=== PATIENT | female | born 1995 | race Hispanic/Latino ===

== ENCOUNTER 2020-01-14 09:12 | Outpatient (CLI) | payer OTHER ==
[2020-01-14 17:15] LABS: SARS-CoV-2 MS2 Positive; SARS-CoV-2 N Gene Negative; SARS-CoV-2 S Gene Negative; SARS-CoV-2 by NAA Not Detected (NotDetected); SARS-CoV-2 orf1ab Negative
== END 2020-01-14 09:13 | disposition home or self-care (01) ==
LOC: LABBT 09:12
PROVIDERS: ATTEND Student in an Organized Health Care Education/Training Program
DX: Z20.828 Contact with and (suspected) exposure to other viral communicable diseases (principal)
CPT/HCPCS: 87635; U0003

== ENCOUNTER 2020-01-18 19:30 | Inpatient (IN) | payer OTHER ==
--- NOTE | 2020-01-19 04:14 | PDOC.FPROB ---
FMR OB H&P: HPI - History of Present Illness Chief Complaint: mIOL for IUGR History of Present Illness: Pt is a at 39.2 wga by a 8.3wk sono who presents for mIOL for IUGR. Last Hadlock with MFM was 12/26 and was 8%. Patient endorses good movement, no LOF/VB/VD. Primary Care Physician: Shauna FMR OB H&P: Current - Care : 1 Para: 0010 Gestational age: 39.2wks Due date: 01/24/20 Dating Criteria: 8.3 wk sono - OB Labs Blood type: A RH: positive Antibody Screen: negative HIV: negative RPR: negative Rubella: immune Gonorrhea: negative Chlamydia: negative Pap Smear: NILM GBS: negative - Additional Ultrasound Additional: Hadlock 8% IUGR 2 echogenic intracradiac focus on mitral valve. FMR OB H&P: History - Past Medical History PMH: denies - OB History OB History: history of induced in 1T (medical with no instrumentation) Anemia of , on iron . h/h - INVENTORY CONTROL/SHIPPING RECEIVING History INVENTORY CONTROL/SHIPPING RECEIVING History: denies hx of STDs LMP 04/10/19 Menarche 14 - Surgical History Sx History: denies - Social History Social History: denies alcohol, drugs, tobacco - Family History Family History: denies FMR OB H&P: Medications - Current Home Medications: Medication Instructions Recorded Confirmed Type Ferrous Sulfate [Iron] 1 tab PO DAILY 01/19/20 01/19/20 History Pnv No.95/Ferrous Fum/Folic AC 1 tab PO DAILY 01/19/20 01/19/20 History [ [place]] Allergies/Adverse Reactions: Allergies Allergy/AdvReac Type Severity Reaction Status Date / Time No Known Allergies Allergy Verified 01/19/20 04:30 FMR OB H&P: ROS - Review of Systems General: denies: fever/chills Eyes: denies: vision changes Cardiovascular: denies: chest pain Respiratory: denies: shortness of breath Gastrointestinal: denies: abdominal pain, vomiting Genitourinary (Female): denies: dysuria, vaginal discharge, vaginal pain, vaginal bleeding, contractions, vaginal pressure Musculoskeletal: denies: swelling Neurologic: denies: syncope, headache FMR OB H&P: Vital Signs - Heart Tones Baseline: 130 Variability: moderate Acceleration: present Deceleration: absent Category: category 1 [place] contractions every: irritability FMR OB H&P: Physical Exam - Physical Exam General: NAD, awake, alert and oriented HEENT: normocephalic and atraumatic, EOMI, conjunctiva clear, grossly normal vision, grossly normal hearing Neck: supple Heart: RRR, normal S1/S2 General: CTAB, no respiratory distress Abdomen: soft, gravid, non-tender Musculoskeletal: FROM in all four extremities Neurological: cranial nerves II through XII intact, no focal deficit Skin: no rash Psychiatric: intact recent and remote memory, good judgement and insight - Pelvic Exam SVE: 0/0/-3 Membranes: intact Presentation: cephalic FMR OB H&P: A/P Disposition: Pt is a at 39.2 wga by a who presents for mIOL for IUGR. #mIOL for IUGR -most recent Hadlock 8% -patient desires epidural -baby is confirmed cephalic on bedside sono -continuous monitoring, cat 1 strip on admission -initial cervical check 0/0/-3 , henderson of 2 -cytotec induction -cervical checks q3 hours -placenta to path after delivery as per MFM recs anticipate Discussion: Date/Time: 01/19/20 4680 This H&P was discussed with Dr. Nice and Dr. Walton who agree with the above documentation and plan. Addendum - Attending - Attending Attestation Date/Time: 01/19/20 9614 I personally evaluated the patient and discussed the management with Dr. Brown and Dr. Nice I agree with the History, Examination, Assessment and Plan documented above with any addition or exceptions noted below. Admit for mIOL 2/2 IUGR. Unfavorable cervix. Cephalic. Reactive tracing. Will start induction with miso. May eat breakfast 1.5 hours after miso placement. Repeat SVE in 4 hours or as needed. Jamilah
[2020-01-19] MEDS ORDERED: Acetaminophen 500 MG TAB PO PRN (04:15)
[2020-01-19] MEDS ORDERED: Ondansetron PF 4 MG/2 ML Vial IVP PRN ×2 (04:15→13:54)
[2020-01-19] MEDS ORDERED: Butorphanol Tartrate 1 MG/ML VIAL SLOW IVP PRN (04:15)
[2020-01-19] MEDS ORDERED: Docusate 100 MG CAP PO PRN (04:15)
[2020-01-19] MEDS ORDERED: Meperidine HCl/PF 25 MG/ML VIAL IM/IV PRN (04:15)
[2020-01-19] MEDS ORDERED: hydrALAZINE 20 MG/ML VIAL SLOW IVP PRN (04:15)
[2020-01-19] MEDS ORDERED: Promethazine HCl 25 MG/ML VIAL IM PRN ×2 (04:15→13:54)
[2020-01-19 04:42] VITALS: BMI 26.9
[2020-01-19 05:15] LABS: Hemoglobin 12.6 g/dL (12.0-16.0); Mean Corpuscular HGB CONC 32.8 g/dL (32.0-36.0); Mean Corpuscular Hemoglobin 31.9 pg (27.0-31.0); Mean Corpuscular Volume 97.4 fL (78.0-98.0); Mean Platelet Volume 9.4 fL (7.4-10.4); Platelet Count 201 thou/uL (130-400); RBC Distribution Width 12.1 % (11.5-14.5); Red Blood Cell (RBC) Count 3.95 mill/uL (4.20-5.40); White Blood Cell (WBC) Count 9.5 thou/uL (4.8-10.8)
[2020-01-19] MEDS ORDERED: NS / Oxytocin 40 units/1000ml 1,000 ML IV PRN (05:21)
[2020-01-19] MEDS ORDERED: Misoprostol 200 MCG TAB PR PRN (05:21)
[2020-01-19] MEDS ORDERED: Ibuprofen 800 MG TAB PO PRN (05:21)
[2020-01-19] MEDS ORDERED: Methylergonovine 0.2 MG/ML VIAL IM PRN (05:21)
[2020-01-19] MEDS ORDERED: Carboprost 250 MCG/ML AMP IM PRN (05:21)
[2020-01-19] MEDS ORDERED: Lidocaine 1% (PF) 30 ML VIAL SC PRN (05:21)
[2020-01-19 05:54] LABS: HBSAg Index 0.18 S/CO (0-0.99)
[2020-01-19 06:12] LABS: Syphilis Antibody Nonreactive (Nonreactive); Syphilis Antibody Index 0.01 S/CO (<1.00 Non-Reactive)
[2020-01-19 06:15] LABS: Hep B Surf Ag NonReactive S/CO (NonReactive)
[2020-01-19] MEDS: Misoprostol 100 MCG TAB VAG SCH (06:40)
[2020-01-19] MEDS ORDERED: Ferrous Sulfate 325 MG TAB PO SCH (08:00)
[2020-01-19] MEDS ORDERED: Prenatal Vitamin 1 TAB PO SCH (09:00)
[2020-01-19] MEDS: Lactated Ringer's 1,000 ML IV SCH (10:00)
--- NOTE | 2020-01-19 10:35 | PDOC.OBLPN ---
FMR OB Labor PN: Subj - Interval History Hospital Day: 1 Chief Complaint: mIOL for IUGR Indentification: 24yo at 39.2wks Interval History: Feeling well, no complaints FMR OB Labor PN: Obj - Maternal Vital signs: Vital signs reviewed and normal - Procedures Procedures: Cook balloon cath placed with speculum and ring forceps. FMR OB Labor PN: Exam - Physical Exam General: NAD, awake, alert and oriented HEENT: normocephalic and atraumatic, EOMI, grossly normal vision, grossly normal hearing Neck: supple, FROM General: no respiratory distress Abdomen: soft, gravid, non-tender Musculoskeletal: FROM in all four extremities Neurological: no focal deficit Skin: no rash Lymphatic: no purpura, no petechia Psychiatric: intact recent and remote memory, good judgement and insight, normal mood and affect - Pelvic Exam Vulva: normal hair distribution, appropriate lyssa stage, no lesions, no discharge, no blood Deviation from normal: small 0.5cm polyp protruding from the cervical os SVE: 1.5 [place] score: 5 Membranes: Intact FMR OB Labor PN: Data - Labs Lab results: Laboratory Results - last 24 hr 01/19/20 01/19/20 01/19/20 04:56 04:56 04:56 WBC RBC Hgb Hct MCV MCH MCHC RDW Plt Count MPV Syphilis IgG/IgM Ab Nonreactive Hep Bs Antigen NonReactive Blood Type A POSITIVE Antibody Screen NEGATIVE 01/19/20 01/19/20 04:56 06:30 WBC 9.5 RBC 3.95 L Hgb 12.6 Hct 38.5 MCV 97.4 MCH 31.9 H MCHC 32.8 RDW 12.1 Plt Count 201 MPV 9.4 Syphilis IgG/IgM Ab Hep Bs Antigen Blood Type A POSITIVE Antibody Screen FMR OB Labor PN: A/P Disposition: Pt is a at 39.2 wga by a who presents for mIOL for IUGR. mIOL for IUGR - most recent Hadlock 8% - patient desires epidural - baby is confirmed cephalic on bedside sono - continuous monitoring, cat 1 strip with baseline 140, multiple accels, mod variability, and no decels - initial cervical check 0/0/-3, henderson of 2 at 0515 * Cytotec placed at 0640 * 1.5/70/-3, henderson of 5 at 1000 --> Cook balloon placed and Pitocin started * Recheck in 3-4hrs - placenta to path after delivery, per MFM recs Dispo: anticipate Discussion: Date/Time: 01/19/20 1034 This H&P was discussed with [] and [] who agree with the above documentation and plan. Strip reviewed since admission with good variability, and accels present. 140 baseline. 1 cytotec placed on admission and changed to 1-1.5 cervical dilation. Cook balloon placed @ ~10:[address] Goncalves with Dr. Miranda attending. With 40 mL in both balloons. increase to 80 ml both balloon if pt comfortable and strip reassuring. Plan to start pit at this time to augment contractions. Membranes still intact, and ceohalic confirmed on admission by Dr. Brown by bedside sono. PT agreeable to plan. -Dr. Goncalves
[2020-01-19] MEDS ORDERED: NS w/ Oxytocin 10 units 500 ML IV SCH (12:15)
[2020-01-19] MEDS ORDERED: DISCONTINUE ALL PREVIOUS NARCOTICS FS SCH (13:15)
[2020-01-19] MEDS ORDERED: Bupivacaine 0.5% 20 ML, fentaNYL Citrate/PF 400 MCG in Sodium Chloride 0.9% 72 ML EPIDURAL SCH (13:15)
[2020-01-19] MEDS: Fentanyl 4 mcg/Bupivacaine 0.1% Cassette 100 ML EPIDURAL SCH ×2 (13:53→20:39)
[2020-01-19] MEDS ORDERED: Lactated Ringer's 500 ML IV PRN (13:54)
[2020-01-19] MEDS ORDERED: diphenhydrAMINE 50 MG/ML VIAL IVP PRN (13:54)
[2020-01-19] MEDS ORDERED: ePHEDrine 50 MG/ML VIAL SLOW IVP PRN (13:54)
[2020-01-19] MEDS ORDERED: Acetaminophen 325 MG TAB PO PRN (13:54)
[2020-01-19] MEDS ORDERED: Naloxone HCl 0.4 mg/ml Vial IVP PRN ×2 (13:54)
[2020-01-19] MEDS ORDERED: Communication Order-Pharmacy FS SCH (14:00)
--- NOTE | 2020-01-19 17:24 | PDOC.LDPN ---
Labor & Delivery Progress Note - Subjective Subjective: comfortable, no concerns - Objective Vital signs reviewed and normal: yes General: NAD [place] contractions every: 2-3 min Plan: pitocin for augmentation -: at 39.2 wga by a who presents for mIOL for IUGR. mIOL for IUGR - most recent Hadlock 8% - baby is confirmed cephalic on bedside sono - placenta to path after delivery, per M recs - continuous monitoring, baseline 150, accels present, mod variability, few variables - initial cervical check 0/0/-3, henderson of 2 at 0515 * Cytotec placed at 0640 * 1.5/70/-3 1030 * Cook balloon @ 10:50 * Pit started 12:15, currently @ 4, ctx q2-3 min * Epidural placed * Balloon in place 14:30 Dispo: Continue pitocin and cook balloon for induction
--- NOTE | 2020-01-19 23:38 | PDOC.OBLPN ---
FMR OB Labor PN: Subj - Interval History Chief Complaint: cervical check FMR OB Labor PN: Obj - Maternal Vital signs: BP: 99/80 HR: 80 R: 18 Wt: 71kg - Procedures AROM: clear fluid (with minimal blood) IUPC placed: yes FMR OB Labor PN: Exam - Physical Exam General: NAD, awake, alert and oriented HEENT: normocephalic and atraumatic Heart: RRR, normal S1/S2 General: no respiratory distress Abdomen: soft, gravid Neurological: cranial nerves II through XII intact Skin: no rash Psychiatric: intact recent and remote memory, good judgement and insight - Pelvic Exam SVE: 1 Membranes: ruptured-AROM Presentation: cephalic FMR OB Labor PN: Data - Labs Lab results: Laboratory Results - last 24 hr 01/19/20 01/19/20 01/19/20 04:56 04:56 04:56 WBC RBC Hgb Hct MCV MCH MCHC RDW Plt Count MPV Syphilis IgG/IgM Ab Nonreactive Hep Bs Antigen NonReactive Blood Type A POSITIVE Antibody Screen NEGATIVE 01/19/20 01/19/20 04:56 06:30 WBC 9.5 RBC 3.95 L Hgb 12.6 Hct 38.5 MCV 97.4 MCH 31.9 H MCHC 32.8 RDW 12.1 Plt Count 201 MPV 9.4 Syphilis IgG/IgM Ab Hep Bs Antigen Blood Type A POSITIVE Antibody Screen FMR OB Labor PN: A/P Disposition: at 39.2 wga by a who presents for mIOL for IUGR. mIOL for IUGR - most recent Hadlock 8% - baby is confirmed cephalic on bedside sono - placenta to path after delivery, per [facility] recs - continuous monitoring - initial cervical check 0/0/-3, henderson of 2 at 0515 * Cytotec placed at 0640 * 1.5/70/-3 1030 * Cook balloon @ 10:50 * Pit started 12:15, currently @ 4, ctx q2-3 min * Epidural placed * Balloon in place 14:30 * at 2315. IUPC placed after AROM * Cat 1-2 with baseline at 150bpm + accels, minimal to moderate variability Dispo: anticipate Discussion: Date/Time: 01/19/20 6599 This H&P was discussed with Dr. Nice and Dr. Walton who agree with the above documentation and plan. Addendum - Attending - Attending Attestation Date/Time: 01/19/20 8436 I personally evaluated the patient and discussed the management with Dr. Brown and Dr. Nice I agree with the History, Examination, Assessment and Plan documented above with any addition or exceptions noted below. I was present for AROM. Clear. Some bloody show from cervical polyp. IUPC placed. Adjust pit per protocol and mVUs. Repeat exam in 2 hours. Jamilah
[2020-01-20] MEDS ORDERED: diphenhydrAMINE 25 MG CAP PO PRN ×2 (03:00→03:34)
[2020-01-20] MEDS ORDERED: Acetaminophen 500 MG TAB PO PRN (03:34)
[2020-01-20] MEDS ORDERED: Preparation H Ointment 28 GM TUBE PR PRN (03:34)
[2020-01-20] MEDS ORDERED: Bisacodyl 10 MG SUPP PR PRN (03:34)
[2020-01-20] MEDS ORDERED: NS / Oxytocin 40 units/1000ml 1,000 ML IV SCH (03:34)
[2020-01-20] MEDS ORDERED: hydrALAZINE 20 MG/ML VIAL SLOW IVP PRN (03:34)
[2020-01-20] MEDS ORDERED: Lanolin Ointment 7 GM TUBE TOP PRN (03:34)
[2020-01-20] MEDS ORDERED: Milk Of Magnesia 30 ML UDCUP PO PRN (03:34)
[2020-01-20] MEDS ORDERED: Benzocaine-Menthol 82.5 ML CAN TOP PRN (03:34)
[2020-01-20] MEDS: Ampicillin 2 GM in Sodium Chloride 0.9% 100 ML IVPB SCH ×2 (03:54→10:41)
--- NOTE | 2020-01-20 08:44 | DN ---
DATE OF PROCEDURE: 01/20/2020 DELIVERING PHYSICIAN: Shaylee Brown MD, PGY-1, Araceli Goncalves DO, PGY-2. ATTENDING: Izabela Walton MD PROCEDURE: Spontaneous vaginal delivery. ANESTHESIA: Epidural. QUANTITATIVE BLOOD LOSS: 792 mL. PREOPERATIVE DIAGNOSES: 1. Term intrauterine , in labor. 2. History of intrauterine growth restriction with Hadlock 8%, anemia of , on iron, echogenic intracardiac focus on mitral valve during ultrasound. POSTOPERATIVE DIAGNOSES: 1. Term intrauterine , delivered. 2. History of intrauterine growth restriction with Hadlock 8%, anemia of , on iron, echogenic intracardiac focus on mitral valve during ultrasound. INDICATIONS: A 24-year-old, G2, P 0-0-1-0 at 39 and 3 weeks, who presents for medical induction of labor for IUGR. DELIVERY NOTE: This is a 24-year-old, G2, P0-0-1-0 at 39 and 3 weeks, who delivered a viable female infant at 0200. During antepartum course, the patient was induced using Cytotec first, followed by a Cook's balloon and Pitocin. Later in patient's labor, the medical team worked to try to resolve the patient's category 2 strip with minimal variability with multiple position changes, oxygen bolus, and scalp stimulation with success. A vigorous female was delivered over the perineum in the occipitoanterior position. Anterior shoulder and the remainder of the body was delivered. A nuchal cord was noted at delivery of the head and the cord and knot were reduced once body had delivered. Baby was put onto mom's chest. Cord was clamped after delayed cord clamping and cut and cord blood collected. Placenta was delivered in a [place] presentation with a three-vessel cord noted. Fundal massage was performed and the fundus was firm. However, brisk vaginal bleeding was appreciated on exam. Bimanual exam resulted in extraction of multiple clots. Oxytocin was running and Methergine and Cytotec were administered and bleeding stopped and the fundus was still firm. The cervix and vagina were inspected and a second-degree perineal laceration was appreciated and repaired with 2-0 Vicryl in the usual fashion with good approximation and hemostasis. went to nursery in good condition for routine care. Apgars were 8 and 9 at 1 and 5 minutes respectively. The patient tolerated delivery well and went to after routine recovery care. Dr. Walton was present and teaching throughout the procedure. Job ID: [id number] MTDD
[2020-01-20] MEDS ORDERED: Adacel (T-DAP) 0.5 ML SYRINGE IM ONE (09:00)
[2020-01-20] MEDS ORDERED: Sodium Chloride 0.9% 10 ML ONE (10:40)
[2020-01-20] MEDS: Docusate Calcium (SURFAK) 240 MG CAP PO SCH ×2 (10:43→21:24)
[2020-01-20] MEDS: Prenatal Vitamin 1 TAB PO SCH (10:43)
[2020-01-20] MEDS: Ferrous Sulfate 325 MG TAB PO SCH ×2 (10:49→10:55)
[2020-01-20] MEDS: Ibuprofen 800 MG TAB PO SCH ×3 (10:49→21:25)
[2020-01-20] MEDS: Lactated Ringer's 1,000 ML IV SCH (20:12)
[2020-01-20] MEDS: Misoprostol 100 MCG TAB VAG SCH ×2 (20:13→20:14)
[2020-01-21] MEDS: Ibuprofen 800 MG TAB PO SCH ×2 (05:24→13:50)
[2020-01-21 06:50] LABS: #Basophils 0.1 thou/uL (0.0-0.2); #Eosinphils 0.3 thou/uL (0.0-0.7); #Lymphocytes 2.4 thou/uL (1.20-3.40); #Monocytes 0.7 thou/uL (0.11-0.59); #Neutrophils 8.5 thou/uL (1.40-6.50); %Basophils 0.6 % (0.0-1.0); %Eosinophils 2.2 % (0.0-10.0); %Lymphocytes 20.2 % (21.0-51.0); %Monocytes 5.7 % (0.0-10.0); %Neutrophils 71.3 % (42.0-75.0); Hemoglobin 9.9 g/dL (12.0-16.0); Mean Corpuscular Hemoglobin 32.9 pg (27.0-31.0); Mean Corpuscular Volume 96.6 fL (78.0-98.0); Mean Platelet Volume 8.8 fL (7.4-10.4); Platelet Count 173 thou/uL (130-400); RBC Distribution Width 11.9 % (11.5-14.5); Red Blood Cell (RBC) Count 3.01 mill/uL (4.20-5.40); White Blood Cell (WBC) Count 11.9 thou/uL (4.8-10.8)
--- NOTE | 2020-01-21 08:16 | PDOC.PP ---
Post Progress Note Post Day #: 1 Subjective: Pt doing very well, pain controlled, very minimal vaginal bleeding, spotting. able to ambulate well and void well. yvonne esthela with infant and would like to go home today if possible PO intake tolerated: yes Flatus: yes Ambulation: yes Vital Signs (12 hours) Temp Pulse Resp BP 01/21/20 00:00 98.6 F 85 16 101/57 L 01/20/20 21:00 99.2 F Weight Weight 71.214 kg - Physical Examination General: NAD Cardiovascular: no m/r/g, RRR Respiratory: clear to auscultation bilaterally, non-labored breathing Abdominal: + bowel sounds, lochia, no distention, appropriately TTP Fundus firm & at: just below umbilicus Extremities: negative homans (B) Skin: no rash Neurological: no gross focal deficits Psychiatric: A&Ox3, normal affect Result Diagrams: 01/21/20 06:32 Additional Labs: Post Labs Hep Bs Antigen NonReactive S/CO (NonReactive) 01/19/20 04:56 Blood Type A POSITIVE 01/19/20 06:30 (1) (spontaneous vaginal delivery) Code(s): O80 - ENCOUNTER FOR FULL-TERM UNCOMPLICATED DELIVERY Status: Acute (2) Anemia Code(s): D64.9 - ANEMIA, UNSPECIFIED Status: Acute - Assessment/Plan 24 y/o --> 1011 delivered via on 01/19 @ 0200 via PP day #1 light lochia Anemia hgb 9, continue iron PO for 6 weeks pain control with ice packs, motrin and tylenol. stool softener and mirilax upon d.c home planning d/c home today with rx of iron, motrin, stool softener. f/u in office in 2 weeks . Desire PP OCP's @ 6 weeks 6 weeks pelvic rest
[2020-01-21] MEDS: Docusate Calcium (SURFAK) 240 MG CAP PO SCH (08:44)
[2020-01-21] MEDS: Ferrous Sulfate 325 MG TAB PO SCH (08:44)
[2020-01-21] MEDS: Prenatal Vitamin 1 TAB PO SCH (08:44)
[2020-01-21 09:08] VITALS: BP 99/55; TEMP 97.7
--- NOTE | 2020-01-24 09:20 | PQF ---
CLINICAL DOCUMENTATION CLARIFICATION FORM: Dear : Hazel Son Date / Time: 01/24/2020 09:19 Please exercise your independent, professional judgment in responding to the clarification form. Clinical indicators are provided on the bottom of this form for your review Please check appropriate box(es): [ ] Acute blood loss anemia [ ] Post-op anemia related to acute blood loss [ ] Anemia unspecified [ ] Other diagnosis [ X ] Unable to determine- I never saw this patient Physician Signature: Date/Time: For continuity of documentation, please document condition throughout progress notes and discharge summary. Thank You. To be completed by CDI/Coding staff for physician review: Present Clinical Indicators - Signs / Symptoms / Labs Results and Location in Medical Record [x] Anemia Labor and delivery 01/19 [x] BP: 01/1805=035/56 01/19=85/52 01/20=99/55 Vital Signs 01/18 [x] RBC: 01/18=3.95 01/20=3.01 Laboratory 01/18 [x] Hgb: 01/18=12.6 01/20=9.9 Laboratory 01/18 [x] Hct: 01/18=38.5 01/20=29.1 Laboratory 01/18 Present Risk Factors Results and Location in Medical Record [x] 39 weeks gestatation Labor and delivery 01/19 [x] s/p Labor and delivery 01/19 [x] Second degree laceration Labor and delivery 01/19 Present Treatments Results and Location in Medical Record [x] IVF MAR 01/18 [x] Ferrous sulfate 325mg oral APR 21 [x] Laboratory Monitoring Labs 01/18 CDS/Chucker Signature: Sudha Samano Phone #: [phone] Date/Time: 01/24/2020 This is a permanent part of the Medical Record [facility]
--- NOTE | 2020-01-25 21:58 | PQF ---
CLINICAL DOCUMENTATION CLARIFICATION FORM: Dear : Izabela Walton Date / Time: 01/25/2020 21:56 Please exercise your independent, professional judgment in responding to the clarification form. Clinical indicators are provided on the bottom of this form for your review Please check appropriate box(es): [ x ] Acute blood loss anemia [ ] Post-op anemia related to acute blood loss [ ] Anemia unspecified [ ] Other diagnosis [ ] Unable to determine Physician Signature: Date/Time: For continuity of documentation, please document condition throughout progress notes and discharge summary. Thank You. To be completed by CDI/Coding staff for physician review: Present Clinical Indicators - Signs / Symptoms / Labs Results and Location in Medical Record [x] Anemia Labor and delivery 01/19 [x] BP: 01/1870=865/56 01/19=85/52 01/20=99/55 Vital Signs 01/18 [x] RBC: 01/18=3.95 01/20=3.01 Laboratory 01/18 [x] Hgb: 01/18=12.6 01/20=9.9 Laboratory 01/18 [x] Hct: 01/18=38.5 01/20=29.1 Laboratory 01/18 Present Risk Factors Results and Location in Medical Record [x] 39 weeks gestatation Labor and delivery 01/19 [x] s/p Labor and delivery 01/19 [x] Second degree laceration Labor and delivery 01/19 Present Treatments Results and Location in Medical Record [x] IVF APR 21 [x] Ferrous sulfate 325mg oral APR 21 [x] Laboratory Monitoring Labs 01/18 CDS/Compo Conveyor Operator Signature: Sudha Samano Phone #: ext [phone] Date/Time: 01/25/2020 This is a permanent part of the Medical Record [facility]
== END 2020-01-21 18:27 | disposition home or self-care (01) | DRG 806 ==
LOC: L&D 01-19 03:46 → 3SW 01-20 09:11
PROVIDERS: ADMIT Family Medicine; ATTEND Family Medicine
PROC: 10E0XZZ Delivery of Products of Conception, External Approach (ICD-10-PCS; principal; 2020-01-20)
PROC: 0KQM0ZZ Repair Perineum Muscle, Open Approach (ICD-10-PCS; 2020-01-20)
PROC: 0U7C7ZZ Dilation of Cervix, Via Natural or Artificial Opening (ICD-10-PCS; 2020-01-20)
PROC: 10907ZC Drainage of Amniotic Fluid, Therapeutic from Products of Conception, Via Natural or Artificial Opening (ICD-10-PCS; 2020-01-20)
PROC: 10H07YZ Insertion of Other Device into Products of Conception, Via Natural or Artificial Opening (ICD-10-PCS; 2020-01-20)
DX: O36.5930 Maternal care for other known or suspected poor fetal growth, third trimester, not applicable or unspecified (principal); D62 Acute posthemorrhagic anemia; Z37.0 Single live birth; Z3A.39 39 weeks gestation of pregnancy; O70.1 Second degree perineal laceration during delivery; O90.81 Anemia of the puerperium
CPT/HCPCS: 36415; 51702; 85025; 85027; 86780; 86850; 86900; 86901; 87340; J0290; J1580; J2210; J2590; J3010; J3490; Q0163